=== PATIENT | female | born 1990 | race African-American/Black ===

== ENCOUNTER → 2021-08-16 | Outpatient (CLI) | payer MEDICAID ==
[~2021-08-16] MED LIST: ACHYD1T PO; AMOX500C2 PO; CEPH500C PO; FERR-57 PO; IBP800T PO; Ibuprofen PO; MMT17NA NS; OXYC-12 PO; PREN1TAB19 PO
--- NOTE | 2021-08-16 11:30 | Diagnostic Imaging Report ---
INDICATION: survey. TECHNIQUE: Multiple real-time grayscale images were obtained over the gravid uterus. COMPARISON: None FINDINGS: There is a single live fetus in a breech presentation. heart rate was recorded at 160 BPM. Placenta is posterior. The amniotic fluid volume is normal. Cervical length is 4 cm. kidneys, bladder, and stomach are unremarkable. brain is unremarkable. There is a four-chamber heart. There is an echogenic intracardiac focus in the left ventricle, nonspecific. There is a three-vessel cord with normal insertion. spine is unremarkable. Biometrical measurements are as follows: Biparietal 5.50 cm, age 22 weeks 6 days. Head circumference 20.46 cm, age 22 weeks 5 days. Abdominal circumference 18.60 cm, age 23 weeks 3 days. Femur length 4.08 cm, age 23 weeks 2 days. Sonographic estimate age: 23 weeks 1 days. Sonographic estimated date of delivery: 12/12/2021. Estimated Weight: 574 gm (+/- 84 gm). LMP percentile: 82%. heart rate: 160 beats per minute. number: 1 of 1. IMPRESSION: 1. Single live IUP 23 weeks 1 day gestational age with estimated date of confinement sonographically of 12/12/2021. 2. Single echogenic intracardiac focus, left ventricle. Dictated by: Dictated on workstation # [id number]
== END ==
LOC: RAD 10:06
PROVIDERS: ATTEND Obstetrics & Gynecology
DX: Z34.92 Encounter for supervision of normal pregnancy, unspecified, second trimester (principal); Z3A.23 23 weeks gestation of pregnancy
CPT/HCPCS: 76805

== ENCOUNTER → 2021-09-06 | Outpatient (CLI) | payer MEDICAID ==
--- NOTE | 2021-09-06 13:37 | Diagnostic Imaging Report ---
INDICATION: Followup 4 chamber heart. TECHNIQUE: Focused ultrasound of the gravid uterus was performed to evaluate the four-chamber heart. COMPARISON: 08/16/2021. FINDINGS: A single live intrauterine gestation is visualized in cephalic presentation. An echogenic focus is again seen within the left ventricle. The outflow tracts are visualized and have a normal appearance. Cine clips taken show the heart beating although a heart rate was not obtained. The placenta is posterior and not low-lying. BRAVO is within normal limits visually. A formal anatomic survey was not performed. IMPRESSION: 1. Single live intrauterine gestation in cephalic presentation. 2. Redemonstration of an echogenic focus within the left ventricle. Recommend continued followup as indicated. Dictated by: Dictated on workstation # [id number]
== END ==
LOC: RAD 12:00
PROVIDERS: ATTEND Obstetrics & Gynecology
DX: O28.3 Abnormal ultrasonic finding on antenatal screening of mother (principal); Z3A.00 Weeks of gestation of pregnancy not specified
CPT/HCPCS: 76816

== ENCOUNTER 2021-12-21 06:53 | Inpatient (IN) | payer MEDICAID ==
[2021-12-21] VITALS (18 sets, daily range): BP systolic 96–157; BP diastolic 51–101
[~2021-12-21] VITALS: Ht 167.7 cm; Wt 114.8 kg
[2021-12-21] MEDS ORDERED: D5 LR IV SOLUTION 1,000 ML IV ONE (07:23)
[2021-12-21] MEDS ORDERED: MINERAL OIL 30 ML OIL TOP PRN (07:30)
[2021-12-21] MEDS ORDERED: D5 LR IV SOLUTION 1,000 ML IV SCH (07:30)
[2021-12-21 07:43] LABS: BASOPHILS % (AUTO) 0 % (0-10); EOSINOPHILS # (AUTO) 0.1 10^3/uL (0.0-0.3); EOSINOPHILS % (AUTO) 1 % (0-10); HEMATOCRIT 37 % (35-52); HEMOGLOBIN 13.8 g/dL (11.5-16.0); LYMPHOCYTES # (AUTO) 2.2 10^3/uL (1.0-4.0); LYMPHOCYTES % (AUTO) 24 % (12-44); MEAN CORPUSCULAR HEMOGLOBIN 32 pg (25-34); MEAN CORPUSCULAR HGB CONC 37 g/dL (32-36); MEAN CORPUSCULAR VOLUME 86 fL (80-99); MEAN PLATELET VOLUME 8.5 fL (9.0-12.2); MONOCYTES # (AUTO) 0.5 10^3/uL (0.0-1.0); MONOCYTES % (AUTO) 6 % (0-12); NEUTROPHILS # (AUTO) 6.1 10^3/uL (1.8-7.8); NEUTROPHILS % (AUTO) 67 % (42-75); PLATELET COUNT 291 10^3/uL (130-400); WHITE BLOOD COUNT 9.1 10^3/uL (4.3-11.0)
[2021-12-21] MEDS ORDERED: OXYTOCIN PRE-MIX DRIP 0 ML IV ONE (07:47)
[2021-12-21] MEDS ORDERED: OXYTOCIN PRE-MIX DRIP 500 ML IV SCH ×2 (09:15→12:45)
[2021-12-21] MEDS ORDERED: BUTORPHANOL INJ 2 MG/ML (STADOL) VIAL ONE (09:22)
[2021-12-21] MEDS: BUTORPHANOL INJ 2 MG/ML (STADOL) VIAL IV PRN ×2 (09:28→11:22)
--- NOTE | 2021-12-21 09:31 | History & Physical-OB ---
OB - Chief Complaint & HPI Date/Time Date of Admission: Date of Admission: 12/21/2021 Date seen by a Provider: Dec 21, 2021 Time Seen by a Provider: 08:30 Chief Complaint/History OB-Reason for Admission/Chief: Rupture of Membranes Hx : 3 Hx Para: 2 Expected Date of Delivery: Dec 17, 2021 Gestational Age in Weeks: 40 Gestational Age in Days: 4 Other reason for admission: Patient presented at approximately 0630 with complaint of leakage of fluid. On admission she is noted to have rupture of membranes with green tinged meconium fluid. Admission Nurse Assessment Rev: Yes History of Labs B+/- HBsAg - HIV - VDRL NR Rub I GBS - Allergies and Home Medications Allergies Coded Allergies: No Known Drug Allergies (Unverified , 08/18/11) Patient Home Medication List Home Medication List Reviewed: No Acetaminophen (Acetaminophen) 500 Mg Tablet, 1,000 MG PO Q8HR Prescribed by: SARA KNIGHT on 12/23/21 1009 Ibuprofen (Ibu) 600 Mg Tablet, 600 MG PO Q6H Prescribed by: SARA KNIGHT on 12/23/21 1009 Vit/Fe Fumarate/Fa ( Vitamins Tablet) 1 Each Tablet, 1 EACH PO DAILY, (Reported) Entered as Reported by: LEORA VELAZCO on 08/19/11907 Last Action: Reviewed Discontinued Medications Hydrocodone Bit/Acetaminophen (Lorcet Plus 10/325 Mg) 1 Ea Tab, 1-2 EA PO Q4H PRN for PAIN Discontinued Reason: No Longer Taking Prescribed by: LONNY TIWARI on 09/05/14823 Last Action: Discontinued Mometasone Furoate (Nasonex) 17 Gm [place], 1 SPRAY NS UD, (Reported) Discontinued Reason: No Longer Taking Entered as Reported by: LEORA VELAZCO on 08/19/11907 Last Action: Discontinued [Ibuprofen] 600 MG TAB, 600 MG PO Q6H PRN for CRAMPS Discontinued Reason: No Longer Taking Prescribed by: LONNY TIWRAI on 09/05/14823 Last Action: Discontinued OB - History Hx of Present Care: Yes Ultrasounds: Normal mid trimester US Obstetrical Complications: None Medical Complications: None Information Induced Hypertension: No Maternal Gestational Diabetes: No Hemorrhage: No Obstetrical History Hx : 3 Hx Para: 2 Hx # Term Pregnancies: 2 Hx # Pregnancies: 0 Number of Living Children: 2 Hx Termination: No Hx Total # of Abortions (Spona: 0 Hx Multiple Gestation: No Hx Stillbirth: No Hx Complication: No Hx Induced Hypertens: No Hx Maternal Gestational Diabet: No Delivery History Hx Dystocia: No Hx Large For Gestational Age I: No Hx Small for Gestational Age I: No Hx Section: No Hx Vaginal Delivery Post C-Sec: No Hx Blood Disorders: Yes (Sickle CELL TRAIT) Patient Past Medical History sickle cell trait Social History/Family History Alcohol Use: Denies Use Recreational Drug Use: No (history) Smoking Cessation: Current every day smoker 2nd Hand Smoke Exposure: Yes Immunizations Influenza Vaccine Up-to-Date: No; Not Current Hepatitis A: No Hepatitis B: No Rubella: immune RPR/VDRL: Negative GBS Status: Negative HBsAG: Negative OB - Admission Exam Physical Exam Vitals: Vital Signs 12/21/21 08:39 Temp 36.6 Pulse 67 Resp 16 Pulse Ox 99 O2 Delivery Room Air Heart: Rhythm Normal Lungs: Clear Abdomen: Gravid Extremities: Edema Cervical Dilatation: 3cm Effacement: 75% Station: -3 Membranes: Ruptured Amniotic Fluid: Thin Meconium Heart Rate: 130's Accelerations: Accelerations Present Decelerations: No Decelerations Short Term Variability: Present Care Home Variability: Average (6-25) Contractions on Admission: < 5 Minutes Apart Labs Laboratory Tests Test 12/21/21 07:30 12/21/21 08:00 Range/Units White Blood Count 9.1 4.3-11.0 10^3/uL Red Blood Count 4.30 3.80-5.11 10^6/uL Hemoglobin 13.8 11.5-16.0 g/dL Hematocrit 37 35-52 % Mean Corpuscular Volume 86 80-99 fL Mean Corpuscular Hemoglobin 32 25-34 pg Mean Corpuscular Hemoglobin Concent 37 H 32-36 g/dL Red Cell Distribution Width 13.4 10.0-14.5 % Platelet Count 291 130-400 10^3/uL Mean Platelet Volume 8.5 L 9.0-12.2 fL Immature Granulocyte % (Auto) 2 % Neutrophils (%) (Auto) 67 42-75 % Lymphocytes (%) (Auto) 24 12-44 % Monocytes (%) (Auto) 6 0-12 % Eosinophils (%) (Auto) 1 0-10 % Basophils (%) (Auto) 0 0-10 % Neutrophils # (Auto) 6.1 1.8-7.8 10^3/uL Lymphocytes # (Auto) 2.2 1.0-4.0 10^3/uL Monocytes # (Auto) 0.5 0.0-1.0 10^3/uL Eosinophils # (Auto) 0.1 0.0-0.3 10^3/uL Basophils # (Auto) 0.0 0.0-0.1 10^3/uL Immature Granulocyte # (Auto) 0.2 H 0.0-0.1 10^3/uL Membranes Rupture NEGATIVE OB - Assessment/Plan/Diagnosis Assessment Assessment: active labor, rupture of membranes Admission Dx Labor Rupture of membranes 40 + weeks Admission Status: Inpatient Order (span 2 midnights) Reason for Inpatient Admission: labor Plan Plan: Expectant Management (anticipate ) SARA KNIGHT DO Dec 21, 2021 09:31
[2021-12-21] MEDS ORDERED: FLU QUADRIvalent (3YOA+) 60 mcg/0.5 ml 2021-22(AFLURIA) IM ONE (10:45)
[2021-12-21] MEDS ORDERED: LIDOCAINE/EPI 2% 1:200,00 (XYLOCAINE) 10 ML VIAL ONE (11:37)
[2021-12-21] MEDS ORDERED: WITCH HAZEL(TUCKS) 40 EA JAR TOP PRN (12:45)
[2021-12-21] MEDS ORDERED: BENZOCAINE/MENTHOL (DERMOPLAST) 56 ML CAN TP PRN (12:45)
[2021-12-21] MEDS ORDERED: MEASLES,MUMPS,RUBELLA 1 EA INJ SQ ONE (12:45)
[2021-12-21] MEDS ORDERED: NALOXONE 0.4 MG/ML 1 ML (NARCAN) VIAL IV PRN (12:45)
[2021-12-21] MEDS ORDERED: DIBUCAINE 1% OINTMENT 30 GM TUBE TOP PRN (12:45)
[2021-12-21] MEDS ORDERED: TETANUS,DIPTH,PERTUSS P/F (BOOSTRIX) 0.5 ML VIAL IM ONE (12:45)
--- NOTE | 2021-12-21 12:47 | OB Labor & Delivery Record ---
Vag Delivery Note Vag Delivery Note Date of Delivery: 12/21/21 Preoperative Diagnosis: Ramonita No is a 31 /Para 3 /2 ,Gestational Age 40 4/7 weeks, in labor, ROM, meconium Postoperative Diagnosis: Same Surgeon: SARA KNIGHT Anesthesia: none Delivery Type: vaginal Findings: Viable male , apgars pending, weight 9#4ounces Lacerations: right anterior labia minora abrasion Intact placenta with 3 vessel cord. No nuchal cord, body cord or shoulder dystocia Estimated Blood Loss: 200 ml Complications: None Condition: Stable Description of Procedure: The patient is a 31 year old female who presented in labor with questionable rupture of membranes. She was admitted and informed consent was obtained. Her labor course was remarkable for SROM, meconium fluid noted, spontaneous contractions. She progressed to complete dilatation and began to push. She was then set up for delivery. The infant's head was delivered atraumatically in the FLOWER position. The shoulders and remainder of the 's body were then delivered without difficulty. These delivered in the transverse presentation, so was rotation to a vertical presentation to facilitate delivery of the anterior shoulder. Upon delivery, the head was held below the level of the perineum and the mouth and nares were bulb suctioned. The cord was doubly clamped and cut and the infant was handed off to the pediatric staff. An intact placenta with 3- vessel cord delivered via Yuri and there was found to be minimal bleeding.~ Vigorous fundal massage was performed and the fundus was found to be firm. IV oxytocin was given. Examination of the vagina and perineum revealed no laceration needing repair. Following the delivery, sponge, instrument and needle counts were correct. Mom and baby were both in stable condition in the labor suite. Vitals - Labs Vital Signs - I&O Vital Signs Date Time Temp Pulse Resp B/P (MAP) Pulse Ox O2 Delivery O2 Flow Rate FiO2 12/21/21 11:00 68 16 147/92 (110) Room Air 12/21/21 10:45 65 16 157/101 (119) Room Air 12/21/21 10:30 76 16 141/88 (105) Room Air 12/21/21 10:15 36.4 81 16 132/93 (106) Room Air 12/21/21 10:00 12/21/21 09:30 12/21/21 09:10 12/21/21 08:39 36.6 67 16 99 Room Air 12/21/21 08:20 76 124/79 (94) 12/21/21 07:20 36.6 80 16 100/64 (76) 99 Room Air Labs Laboratory Tests 12/21/21 07:30: White Blood Count 9.1, Red Blood Count 4.30, Hemoglobin 13.8, Hematocrit 37, Mean Corpuscular Volume 86, Mean Corpuscular Hemoglobin 32, Mean Corpuscular Hemoglobin Concent 37H, Red Cell Distribution Width 13.4, Platelet Count 291, Mean Platelet Volume 8.5L, Immature Granulocyte % (Auto) 2, Neutrophils (%) (Auto) 67, Lymphocytes (%) (Auto) 24, Monocytes (%) (Auto) 6, Eosinophils (%) (Auto) 1, Basophils (%) (Auto) 0, Neutrophils # (Auto) 6.1, Lymphocytes # (Auto) 2.2, Monocytes # (Auto) 0.5, Eosinophils # (Auto) 0.1, Basophils # (Auto) 0.0, Immature Granulocyte # (Auto) 0.2H 12/21/21 08:00: Membranes Rupture NEGATIVE SARA KNIGHT DO Dec 21, 2021 12:47
[2021-12-21] MEDS: IBUPROFEN 600 MG (MOTRIN) TAB PO SCH ×2 (13:57→20:13)
[2021-12-21] MEDS ORDERED: CATHETER FLUSH 10 ML SYR IV SCH ×2 (14:00)
[2021-12-21] MEDS: DOCUSATE SODIUM 100 MG (COLACE) CAP PO SCH (20:12)
[2021-12-22 02:07] VITALS: BP 137/70
[2021-12-22] MEDS: IBUPROFEN 600 MG (MOTRIN) TAB PO SCH ×4 (02:07→20:18)
[2021-12-22 06:26] LABS: BASOPHILS # (AUTO) 0.1 10^3/uL (0.0-0.1); BASOPHILS % (AUTO) 0 % (0-10); EOSINOPHILS # (AUTO) 0.1 10^3/uL (0.0-0.3); EOSINOPHILS % (AUTO) 1 % (0-10); HEMATOCRIT 32 % (35-52); HEMOGLOBIN 11.7 g/dL (11.5-16.0); LYMPHOCYTES # (AUTO) 2.4 10^3/uL (1.0-4.0); LYMPHOCYTES % (AUTO) 16 % (12-44); MEAN CORPUSCULAR HEMOGLOBIN 32 pg (25-34); MEAN CORPUSCULAR HGB CONC 37 g/dL (32-36); MEAN CORPUSCULAR VOLUME 87 fL (80-99); MEAN PLATELET VOLUME 8.6 fL (9.0-12.2); MONOCYTES # (AUTO) 0.8 10^3/uL (0.0-1.0); MONOCYTES % (AUTO) 5 % (0-12); NEUTROPHILS % (AUTO) 77 % (42-75); PLATELET COUNT 253 10^3/uL (130-400); WHITE BLOOD COUNT 15.6 10^3/uL (4.3-11.0)
[2021-12-22 07:30] VITALS: BP 115/53
[2021-12-22] MEDS: FERROUS SULF 325 MG (IRON) TAB PO SCH (08:30)
[2021-12-22] MEDS: PRENATAL VITAMIN 1 EA TAB PO SCH (08:30)
[2021-12-22] MEDS: DOCUSATE SODIUM 100 MG (COLACE) CAP PO SCH ×2 (08:30→20:18)
[2021-12-22] MEDS: ACETAMINOPHEN 500 MG TAB (TYLENOL) PO SCH ×2 (08:31→17:21)
--- NOTE | 2021-12-22 10:23 | Postpartum Progress Note ---
Note Note Day # 1 Subjective: Patient is without complaints. Ambulating, voiding. Tolerating a regular diet without nausea or vomiting. Normal lochia. Pain is well controlled with oral pain medications. Objective: Physical Exam: General - Alert and oriented, no apparent distress Abdomen - Soft, appropriately tender to palpation, non-distended, fundus firm at umbilicus Extremities - no edema, negative Williams's bilaterally Assessment: Post- day # 1, status post vaginal delivery. Recovering well, hemodynamically stable Acute blood loss anemia Plan: Routine care. Encourage breast feeding. Encourage ambulation. Ferrous sulfate supplementation. Plan for discharge tomorrow, 12/23/21 Vitals - Labs Vital Signs - I&O Vital Signs Date Time Temp Pulse Resp B/P (MAP) Pulse Ox O2 Delivery O2 Flow Rate FiO2 12/22/21 07:30 35.9 80 18 115/53 (73) 98 Room Air 12/22/21 02:07 36.4 72 16 137/70 (92) 99 Room Air 12/21/21 20:12 36.5 70 16 126/84 (98) 99 Room Air 12/21/21 15:18 36.5 60 16 102/51 (68) 98 Room Air 12/21/21 13:41 77 16 124/81 (95) Room Air 12/21/21 13:33 75 16 127/84 (98) Room Air 12/21/21 13:11 75 16 121/70 (87) Room Air 12/21/21 12:57 89 16 121/63 (82) Room Air 12/21/21 12:42 155/98 (117) Room Air 12/21/21 12:27 81 16 96/60 (72) Room Air 12/21/21 12:00 57 152/100 (117) Room Air 12/21/21 11:45 62 16 Room Air 12/21/21 11:30 83 16 120/67 (84) Room Air 12/21/21 11:15 76 16 133/98 (110) Room Air 12/21/21 11:00 68 16 147/92 (110) Room Air 12/21/21 10:45 65 16 157/101 (119) Room Air 12/21/21 10:30 76 16 141/88 (105) Room Air I & O 12/22/21 07:00 Intake Total 2000 ml Balance 2000 ml Labs Laboratory Tests 12/22/21 06:15: White Blood Count 15.6H, Red Blood Count 3.61L, Hemoglobin 11.7, Hematocrit 32L, Mean Corpuscular Volume 87, Mean Corpuscular Hemoglobin 32, Mean Corpuscular Hemoglobin Concent 37H, Red Cell Distribution Width 13.4, Platelet Count 253, Mean Platelet Volume 8.6L, Immature Granulocyte % (Auto) 1, Neutrophils (%) (Auto) 77H, Lymphocytes (%) (Auto) 16, Monocytes (%) (Auto) 5, Eosinophils (%) (Auto) 1, Basophils (%) (Auto) 0, Neutrophils # (Auto) 12.0H, Lymphocytes # (Auto) 2.4, Monocytes # (Auto) 0.8, Eosinophils # (Auto) 0.1, Basophils # (Auto) 0.1, Immature Granulocyte # (Auto) 0.2H KARYN BO APRN Dec 22, 2021 10:23
[2021-12-22 14:02] VITALS: BP 125/61
[2021-12-22 20:19] VITALS: BP 136/65
[2021-12-23] MEDS: ACETAMINOPHEN 500 MG TAB (TYLENOL) PO SCH ×2 (00:15→10:20)
[2021-12-23 03:20] VITALS: BP 137/80
[2021-12-23] MEDS: IBUPROFEN 600 MG (MOTRIN) TAB PO SCH ×2 (03:20→10:16)
--- NOTE | 2021-12-23 10:06 | Postpartum Progress Note ---
Note Note Day # 2 s/p Subjective: Patient is without complaints. Ambulating, voiding. Tolerating a regular diet w ithout nausea or vomiting. Normal lochia. Pain is well controlled with oral pain medications. bottle feeding. Objective: 12/23/21 03:20 Temp 36.8 Pulse 77 Resp 18 B/P (MAP) 137/80 (99) Pulse Ox 99 O2 Delivery Room Air Physical Exam: General - Alert and oriented, no apparent distress Abdomen - Soft, appropriately tender to palpation, non-distended, fundus firm at umbilicus Extremities - no edema, negative Williams's bilaterally Assessment: 1 post- day # 2, status post spontaneous vaginal delivery. Recovering well, hemodynamically stable Plan: Routine care. Encourage breast feeding. Encourage ambulation. Plan for discharge today Vitals - Labs Vital Signs - I&O Vital Signs Date Time Temp Pulse Resp B/P (MAP) Pulse Ox O2 Delivery O2 Flow Rate FiO2 12/23/21 03:20 36.8 77 18 137/80 (99) 99 Room Air 12/22/21 20:19 36.2 77 18 136/65 (88) 98 Room Air 0.00 12/22/21 14:02 36.4 88 18 125/61 (82) 98 Room Air 0.00 SARA KNIGHT DO Dec 23, 2021 10:06
[2021-12-23] MEDS ORDERED: ACET-93 PO (10:09)
[2021-12-23] MEDS ORDERED: IBUP-844 PO (10:09)
--- NOTE | 2021-12-23 10:10 | Discharge Inst-Women's Service ---
Discharge Inst-Women's Serv Depart Medication/Instructions New, Converted or Re-Newed RX: Transmitted to Pharmacy Final Diagnosis vaginal delivery meconium 40 week gestation Problems Reviewed?: Yes Consults/Follow Up Additional Follow Up: Yes (6 week post ) Activity Activity: Activity as Tolerated Driving Instructions: You May Drive NO SMOKING: NO SMOKING Nothing Inside Vagina: No Douching, No [place], No Tampons Diet Discharge Diet: No Restrictions Symptoms to Report to : Bleeding Excessive, Pain Increased, Fever Over 101 Degrees F, Vaginal Bleeding Increase, Cramps in Feet or Legs, Vaginal Discharge Foul For Any Problems or Questions: Contact Your Physician SARA KNIGHT DO Dec 23, 2021 10:10
[2021-12-23 10:15] VITALS: BP 118/77
[2021-12-23] MEDS: DOCUSATE SODIUM 100 MG (COLACE) CAP PO SCH (10:16)
[2021-12-23] MEDS: FERROUS SULF 325 MG (IRON) TAB PO SCH (10:16)
[2021-12-23] MEDS: PRENATAL VITAMIN 1 EA TAB PO SCH (10:16)
== END 2021-12-23 14:30 | disposition home or self-care (01) | DRG 806 ==
LOC: WSo 06:53 → LDRP 06:57 → WSo 07:26 → LDRP 07:27
PROVIDERS: ADMIT Obstetrics & Gynecology; ATTEND Obstetrics & Gynecology
PROC: 10E0XZZ Delivery of Products of Conception, External Approach (ICD-10-PCS; principal; 2021-12-21)
PROC: 0UQMXZZ Repair Vulva, External Approach (ICD-10-PCS; 2021-12-21)
DX: O48.0 Post-term pregnancy (principal); D62 Acute posthemorrhagic anemia; Z37.0 Single live birth; Z3A.40 40 weeks gestation of pregnancy; O70.0 First degree perineal laceration during delivery; O77.0 Labor and delivery complicated by meconium in amniotic fluid; O90.81 Anemia of the puerperium
CPT/HCPCS: 36415; 84112; 85025; 86850; 86900; 86901; 99212